=== PATIENT | female | born 1940 | race Caucasian/White ===

== ENCOUNTER 2017-01-21 08:06 | Inpatient (IN) | payer MEDICARE, OTHER ==
[2017-01-21 08:11] VITALS: O2SAT 96
--- NOTE | 2017-01-21 08:24 | ED PDOC ---
Psych Transfer Clearance - Clearance Statement Clearance Statement: Reviewed vital signs, lab results and transfer papers. Patient clinically stable for psychiatric admission. patient was cleared by Dr callejas last night
[2017-01-21] MEDS ORDERED: Magnesium Hydroxide Susp 30 ml UD PO PRN (09:54)
[2017-01-21] MEDS ORDERED: Alum-Mag Hydrox-Simethicone Susp (30 mL) PO PRN (09:54)
[2017-01-21] MEDS ORDERED: Bismuth Subsalicylate 262 mg/15 ml Sus (240 ml) PO PRN (09:54)
[2017-01-21] MEDS ORDERED: Patient's Own Med (Olmesartan/Hydrochlorothiazide [Benicar Hct 40-12.5 Mg Tablet] 1 TAB) PO SCH (15:00)
[2017-01-21] MEDS: Pantoprazole 40 mg EC Tab PO SCH (16:07)
--- NOTE | 2017-01-21 16:09 | PCM.PSYCH ---
Initial Psychiatric Evaluation - Initial Psychiatric Evaluation Type of Admission: Voluntary Legal Status: Capacity Chief Complaint (in patient's own words): "I tried to kill myself" Patient's Reaction to Hospitalization: HPI: 76 yo female, presents after taking 4 or 5 Xanax 0.5 mg tablets as a suicide attempt. Patient continues to be tearful on interview, stating that she is suicidal, without current plan/intent, but that she has no desire to live. She reports feeling stressed that she lives alone and also the pending divorce of her son and hyizxozg-lq-vld due to her sons infidelity. She reports sleep/appetite disturbances. She feels hopeless and helpless. No mark/psychosis/delusions/paranoia. She was prescribed Xanax by her PMD for stress. Additional history from travelers' aid worker: 76yo referred to ED by her son after being found "unresponsive with empty Xanax bottles" and stating: "I don't want to live anymore"; Pt speaks only Vincentian; Suction Worker Bessy Bill #[id number] interpreted for Undersigned; Pt reports the following: "I took pills because I don't want to live;" Pt od on a total of 5 pills that help Pt to "calm down" and "to sleep"; Pt admitted to having suicide intent at the time of the above od; And when asked if she would attempt suicide again upon discharge from the ED, Pt stated: "I don't know"; Pt attributes the above suicide attempt to her son's recent separation from his ; Although Pt's yqhfmcxx-nd-uit stated the separation was secondary to Pt's son having an on-going affair, Pt stated her son's separation was secondary to her qeaunlhd-ow-lac having an affair with another woman; In addition to thoughts of suicide, Pt's sleep has recently been poor; Pt denied having a prior hx of suicide/homicide or any other psychiatric illness; Pt reported no other recent stressors; Pt is agreeable to being admitted if it is recommended. 1:45am Adqyjpia-be-lnb Blanca Watts (sinzckrk-te-mgy) reports the following: In September 2016, Pt was informed that her son (zzzrxnox-en-rte's ) was having an affair with another woman; Consequently, Pt has been feeling "sad"; Ciysfuum-gn-cuq and Pt's grand daughter will be moving into their own separate apartment sometime next week; Pt responded by od on an unknown quantity of unknown pills; Pt was subsequently found in her apartment "unresponsive" and "mumbling"; At some point, Pt did indicate that she wanted to ; Pt's son and jtjyynep-iv-tau had been Pt's primary care givers; Daughter -in-law stated: "We were like stability for her;" Without us, she has no stability;" It makes her feel more alone;" Pt is and currently lives in a senior citizen's building; Pt has no prior hx of suicide/homicide nor any other psychiatric illness; However, bfypmpex-jd-nwt described Pt has a "drama casillas", who tends to suffer somatic complaints whenever she (Pt) feels stressed. 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 Denies illicit drug use. FHx: No known family h/o mental illness Current Medications: Active Medications Generic Name Dose Route Start Last Admin Trade Name Freq PRN Reason Stop Dose Admin Acetaminophen 650 mg 01/21/17 09:54 Tylenol 325mg Tab PO Q4 PRN Pain, moderate (4-7) Al Hydrox/Mg Hydrox/Simethicone 30 ml 01/21/17 09:54 Maalox Plus 30 Ml PO Q4 PRN Dyspepsia Allopurinol 100 mg 01/21/17 15:00 01/21/17 16:08 Zyloprim PO 100 mg DAILY JOSE Administration Bismuth Subsalicylate 524 mg 01/21/17 09:54 Pepto-Bismol PO Q4 PRN Diarrhea Lorazepam 0.5 mg 01/21/17 09:54 Ativan PO 02/04/17 09:55 Q6 PRN Anixety/Agitation Lorazepam 0.5 mg 01/21/17 09:54 Ativan PO 02/04/17 09:55 HS PRN Insomnia Losartan Potassium 100 mg 01/22/17 09:00 Cozaar PO DAILY JOSE Magnesium Hydroxide 30 ml 01/21/17 09:54 Milk Of Magnesia PO HS PRN Constipation Pantoprazole Sodium 40 mg 01/21/17 15:00 01/21/17 16:07 Protonix Ec Tab PO 40 mg DAILY JOSE Administration Repaglinide 0.5 mg 01/21/17 17:00 01/21/17 16:06 Prandin PO 0.5 mg BID JOSE Administration Sertraline HCl 50 mg 01/21/17 15:00 01/21/17 16:08 Zoloft PO 50 mg DAILY JOSE Administration Sitagliptin Phosphate 50 mg 01/21/17 15:00 01/21/17 16:06 Januvia PO 50 mg DAILY JOSE Administration Past Psychiatric History - Past Psychiatric History Previous Treatment History: None Pertinent Medical Hx (Current Medical&Sleep Prob, Allergies): Allergies Allergy/AdvReac Type Severity Reaction Status Date / Time iodine Allergy RASH Verified 01/21/17 08:15 Penicillins Allergy RASH Verified 01/21/17 08:15 azithromycin AdvReac Severe ANAPHYLAXIS Verified 01/21/17 13:50 pepper AdvReac Severe ANAPHYLAXIS Verified 01/21/17 11:35 Allopurinol [Zyloprim] 100 mg PO DAILY 11/13/16 Esomeprazole Magnesium [Nexium] 40 mg PO DAILY 11/13/16 Nebivolol [Bystolic] 5 mg PO DAILY 11/13/16 Olmesartan/Hydrochlorothiazide [Benicar Hct 12.5 mg-40 mg] 1 tab PO DAILY Ondansetron ODT [Zofran ODT] 4 mg PO TID PRN #10 odt 11/13/16 Repaglinide 0.5 mg PO BID 11/13/16 SITagliptin [Januvia] 50 mg PO DAILY 11/13/16 Review of Systems - Review of Systems All systems: reviewed and no additional remarkable complaints except - Psychiatric Psychiatric: Abnormal Sleep Pattern, Anhedonia, Depression, Hopelessness, Mood Swings, Suicidal Ideation Mental Status Examination - Personal Presentation Personal Presentation: Looks stated age - Affect Affect: Constricted, Depressed - Motor Activity Motor Activity: Calm - Reliability in Providing Information Reliability in Providing Information: Fair (Can give history, but does not know medications) - Speech Speech: Organized - Mood Mood: Depressed - Formal Thought Process Formal Thought Process: No Impairment - Obsessions/Compulsions Obsessions: No Compulsions: No - Cognitive Functions Orientation: Person, Place, Situation, Time Sensorium: Alert Attention/Concentration: Attentive Estimate of Intelligence: Average Judgement: Intact, as evidence by: Insight regarding need for hospitalization Memory: Recent intact, as evidence by: Ability to recall events of the day - Risk Risk: Suicidal - Strength & Assets Inventory Strength & Assets Inventory: Family support, Cooperative - Limitations Limitations: Living alone DSM 5 DX - DSM 5 DSM 5 Diagnosis: Major Depressive Disorder - Recommended/Plan of Treatment Treatment Recommendations and Plan of Treatment: -Admit to geropsychiatry -Start Zoloft 50 mg PO Daily -Stop Xanax -Individual and group therapy -Disposition planning -Medicine consult re: chronic medical conditions Projected ELOS: 5-7 days Discharge Plan and Discharge Criteria: Discharge when not an acute danger to self and when the patient is psychiatrically stable - Smoking Cessation Smoking Cessation Initiated: No Reason for not providing: Not indicated
[2017-01-22 08:48] LABS: HEMATOCRIT 38.1 % (34.0-47.0); MEAN CELL VOLUME 90.8 fl (81.0-99.0); MEAN CORPUSCULAR HEMOGLOBIN 29.6 pg (27.0-31.0); MEAN CORPUSCULAR HGB CONC 32.5 g/dL (33.0-37.0); WHITE BLOOD COUNT 5.8 K/uL (4.8-10.8)
[2017-01-22] MEDS: Pantoprazole 40 mg EC Tab PO SCH (09:34)
[2017-01-22 09:50] LABS: ALB/GLOB RATIO 1.1 (1.0-2.1); BILIRUBIN,TOTAL 0.4 mg/dl (0.2-1.3); CALCIUM 9.1 mg/dL (8.4-10.2); POTASSIUM 4.6 MMOL/L (3.6-5.0); TOTAL PROTEIN 7.2 G/DL (6.3-8.2)
[2017-01-22 10:20] LABS: THYROID STIMULATING HORMONE 4.26 mIU/ML (0.46-4.68)
--- NOTE | 2017-01-22 11:57 | PCM.PYCHPN ---
Psychiatric Progress Note - Psychiatric Progress Note Patient seen today, length of contact: Patient evaluated, case discussed with team, chart reviewed, 35 min Patient Chief Complaint: "I'm starting to feel better" Problems Identified/Issues Discussed: Patient reports that her mood is starting to improve. She is not expressing suicidal ideation at this time. She is future/goal-oriented. She discussed her disappointment in her son for being unfaithful to his . No paranoia/ delusions/AH/VH/SI/HI. Medication Change: No Medical Record Reviewed: Yes Consults ordered or reviewed: Medicine consult Mental Status Examination - Cognitive Function Orientation: Person, Place, Situation, Time Memory: Intact (Generally intact, but patient unable to recall her medications ) Attention: WNL Concentration: WNL Fund of Knowledge: WNL Decription of patient's judgement and insights: Fair I/J - Mood Mood: Depressed - Affect Affect: Constricted, Depressed - Speech Speech: Appropriate - Formal Thought Process Formal Thought Process: No Impairment Psychotic Thoughts and Behaviors: NO AH/VH/paranoia - Suicidal Ideation Suicidal Ideation: No - Homicidal Ideation Homicidal Ideation: No Goal/Treatment Plan - Goal/Treatment Plan Need for Continued Stay: Remain at risks for inpatient hospitalization, Severe depression anxiety Progress Toward Problem(s) and Goals/Treatment Plan: 76 yo female w/ MDD, s/p suicide attempt by taking 4 or 5 Xanax pills, now starting to report improved mood, no current suicidal ideation, but she continues to be depressed with constricted affect. She needs continued hospitalization for treatment and safety. -Continue Zoloft 50 mg PO Daily -Individual and group therapy -Disposition planning -Medicine consult appreciated Estimated Date of D/C: 01/26/17 - Smoking Cessation Smoking Cessation Initiated: No Reason for not providing: Not indicated
[2017-01-22 18:03] LABS: FOLATE 8.9 ng/mL
--- NOTE | 2017-01-22 18:38 | CP.PCM.CON ---
History of Present Illness - History of Present Illness History of Present Illness: PT WAS SEEN YESTERDAY AND TODAY reasons for consult : ckd stage 3 h/o apkd htn pt was admitted for suicidal ideation and attempt pt is well known to me from office visits .. has mmp and on multiple meds all previous emr reviewed .. pt was seen and examined .. case d/w psh[facility] "I tried to kill myself" Patient's Reaction to Hospitalization: HPI: 76 yo female, presents after taking 4 or 5 Xanax 0.5 mg tablets as a suicide attempt. Patient continues to be tearful on interview, stating that she is suicidal, without current plan/intent, but that she has no desire to live. She reports feeling stressed that she lives alone and also the pending divorce of her son and rjsqfeja-xq-oaq due to her sons infidelity. She reports sleep/appetite disturbances. She feels hopeless and helpless. No mark/psychosis/delusions/paranoia. She was prescribed Xanax by her PMD for stress. Additional history from general lithographic worker: 76yo referred to ED by her son after being found "unresponsive with empty Xanax bottles" and stating: "I don't want to live anymore"; Pt speaks only Guatemalan; Restaurant Management Internship Bessy Bill #[id number] interpreted for Undersigned; Pt reports the following: "I took pills because I don't want to live;" Pt od on a total of 5 pills that help Pt to "calm down" and "to sleep"; Pt admitted to having suicide intent at the time of the above od; And when asked if she would attempt suicide again upon discharge from the ED, Pt stated: "I don't know"; Pt attributes the above suicide attempt to her son's recent separation from his ; Although Pt's aoidccib-ta-ddr stated the separation was secondary to Pt's son having an on-going affair, Pt stated her son's separation was secondary to her raapqplg-cm-tvs having an affair with another woman; In addition to thoughts of suicide, Pt's sleep has recently been poor; Pt denied having a prior hx of suicide/homicide or any other psychiatric illness; Pt reported no other recent stressors; Pt is agreeable to being admitted if it is recommended. 1:45am Bcaglmja-tb-hro lBanca Watts (kefekxrg-gr-agr) reports the following: In September 2016, Pt was informed that her son (ufxxxlcr-rr-jqb's ) was having an affair with another woman; Consequently, Pt has been feeling "sad"; Dhuyhvbo-ar-clo and Pt's grand daughter will be moving into their own separate apartment sometime next week; Pt responded by od on an unknown quantity of unknown pills; Pt was subsequently found in her apartment "unresponsive" and "mumbling"; At some point, Pt did indicate that she wanted to ; Pt's son and ojkiiglv-np-qvr had been Pt's primary care givers; Daughter -in-law stated: "We were like stability for her;" Without us, she has no stability;" It makes her feel more alone;" Pt is and currently lives in a senior citizen's building; Pt has no prior hx of suicide/homicide nor any other psychiatric illness; However, zqkspcxp-pw-rhj described Pt has a "drama casillas", who tends to suffer somatic complaints whenever she (Pt) feels stressed. 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 Denies illicit drug use. FHx: No known family h/o mental illness Current Medications: Active Medications Past Patient History - Past Social History Smoking Status: Never Smoked - CARDIAC Hx Hypertension: Yes - PULMONARY Hx Tuberculosis: No - NEUROLOGICAL Hx Neurological Disorder: No - HEENT Hx HEENT Problems: No - RENAL Hx Chronic Kidney Disease: No - ENDOCRINE/METABOLIC Hx Diabetes Mellitus Type 2: Yes - HEMATOLOGICAL/ONCOLOGICAL Hx Blood Disorders: No - INTEGUMENTARY Hx Dermatological Problems: No - MUSCULOSKELETAL/RHEUMATOLOGICAL Hx Musculoskeletal Disorders: No Hx Falls: Yes (5 yrs ago) - GASTROINTESTINAL HX Swallowing Problems: Yes (Needs chopped food) Other/Comment: polycystic liver - GENITOURINARY/GYNECOLOGICAL Hx Genitourinary Disorders: No - PSYCHIATRIC Hx Substance Use: No - SURGICAL HISTORY Hx Herniorrhaphy: Yes Hx Hysterectomy: Yes - ANESTHESIA Hx Anesthesia: Yes Hx Anesthesia Reactions: No Meds Allergies/Adverse Reactions: Allergies Allergy/AdvReac Type Severity Reaction Status Date / Time iodine Allergy RASH Verified 01/21/17 08:15 Penicillins Allergy RASH Verified 01/21/17 08:15 azithromycin AdvReac Severe ANAPHYLAXIS Verified 01/21/17 13:50 pepper AdvReac Severe ANAPHYLAXIS Verified 01/21/17 11:35 - Medications Medications: Current Medications Acetaminophen (Tylenol 325mg Tab) 650 mg PO Q4 PRN PRN Reason: Pain, moderate (4-7) Last Admin: 01/21/17 21:43 Dose: 650 mg Al Hydrox/Mg Hydrox/Simethicone (Maalox Plus 30 Ml) 30 ml PO Q4 PRN PRN Reason: Dyspepsia Allopurinol (Zyloprim) 100 mg PO DAILY [facility] Last Admin: 01/22/17 09:35 Dose: 100 mg Bismuth Subsalicylate (Pepto-Bismol) 524 mg PO Q4 PRN PRN Reason: Diarrhea Lorazepam (Ativan) 0.5 mg PO Q6 PRN PRN Reason: Anixety/Agitation Stop: 02/04/17 09:55 Lorazepam (Ativan) 0.5 mg PO HS PRN PRN Reason: Insomnia Stop: 02/04/17 09:55 Losartan Potassium (Cozaar) 100 mg PO DAILY [facility] Last Admin: 01/22/17 09:34 Dose: 100 mg Magnesium Hydroxide (Milk Of Magnesia) 30 ml PO HS PRN PRN Reason: Constipation Pantoprazole Sodium (Protonix Ec Tab) 40 mg PO DAILY [facility] Last Admin: 01/22/17 09:34 Dose: 40 mg Repaglinide (Prandin) 0.5 mg PO BID [facility] Last Admin: 01/22/17 17:31 Dose: Not Given Sertraline HCl (Zoloft) 50 mg PO DAILY [facility] Last Admin: 01/22/17 09:35 Dose: 50 mg Sitagliptin Phosphate (Januvia) 50 mg PO DAILY [facility] Last Admin: 01/22/17 09:34 Dose: 50 mg Results - Vital Signs Recent Vital Signs: Last Vital Signs Temp 97.7 F 01/22/17 15:46 Pulse 56 L 01/22/17 15:46 Resp 18 01/22/17 15:46 BP 144/57 L 01/22/17 15:46 Pulse Ox 96 01/21/17 08:15 - Labs Result Diagrams: 01/22/17 08:21 01/22/17 08:21 Labs: Laboratory Results - last 24 hr 01/21/17 01/22/17 01/22/17 16:07 06:28 08:21 WBC 5.8 RBC 4.19 Hgb 12.4 Hct 38.1 MCV 90.8 MCH 29.6 MCHC 32.5 L RDW 14.0 Plt Count 115 L Sodium Potassium Chloride Carbon Dioxide Anion Gap BUN Creatinine Est GFR ( Amer) Est GFR (Non-Af Amer) POC Glucose (mg/dL) 154 H 119 H Random Glucose Hemoglobin A1c Calcium Total Bilirubin AST ALT Alkaline Phosphatase Total Protein Albumin Globulin Albumin/Globulin Ratio Triglycerides Cholesterol LDL Cholesterol Direct HDL Cholesterol Vitamin B12 Folate Thyroxine (T4) TSH 3rd Generation RPR 01/22/17 01/22/17 01/22/17 08:21 08:21 08:21 WBC RBC Hgb Hct MCV MCH MCHC RDW Plt Count Sodium 140 Potassium 4.6 Chloride 104 Carbon Dioxide 27 Anion Gap 14 BUN 30 H Creatinine 1.4 H Est GFR ( Amer) 44 Est GFR (Non-Af Amer) 36 POC Glucose (mg/dL) Random Glucose 113 H Hemoglobin A1c 6.6 H Calcium 9.1 Total Bilirubin 0.4 AST 49 H ALT 54 H Alkaline Phosphatase 160 H Total Protein 7.2 Albumin 3.8 Globulin 3.4 Albumin/Globulin Ratio 1.1 Triglycerides 105 Cholesterol 223 H LDL Cholesterol Direct 114 HDL Cholesterol 70 Vitamin B12 299 Folate 8.9 Thyroxine (T4) 9.00 TSH 3rd Generation 4.26 RPR Nonreactive 01/22/17 01/22/17 01/22/17 11:27 11:54 15:31 WBC RBC Hgb Hct MCV MCH MCHC RDW Plt Count Sodium Potassium Chloride Carbon Dioxide Anion Gap BUN Creatinine Est GFR ( Amer) Est GFR (Non-Af Amer) POC Glucose (mg/dL) 58 L 112 H 99 Random Glucose Hemoglobin A1c Calcium Total Bilirubin AST ALT Alkaline Phosphatase Total Protein Albumin Globulin Albumin/Globulin Ratio Triglycerides Cholesterol LDL Cholesterol Direct HDL Cholesterol Vitamin B12 Folate Thyroxine (T4) TSH 3rd Generation RPR Assessment & Plan - Assessment and Plan (Free Text) Assessment: CKD .. STABLE HTN .. C/O CURRENT MEDS H/O PCKD SEVERE DEPRESION P C/O CURRENT MEDS C/O CURRENT MANAGEMENT WILL F/U VERY CLOSELY - Date & Time Date: 01/22/17 Time: 15:00
[2017-01-23] MEDS: Pantoprazole 40 mg EC Tab PO SCH (09:06)
--- NOTE | 2017-01-23 10:03 | PCM.PYCHPN ---
Psychiatric Progress Note - Psychiatric Progress Note Patient seen today, length of contact: Patient evaluated, case discussed with team, chart reviewed, 35 min Patient Chief Complaint: "I'm feeling better" Problems Identified/Issues Discussed: Patient reports that her mood is improving. She is not expressing suicidal ideation at this time. She is future/goal-oriented and wants to live. She discussed her concerns that her family would be upset with her about her recent overdose of 4-5 pills. No paranoia/delusions/AH/VH/SI/HI. SW spoke with patient's son, Star, who does not feel she is an acute danger to herself or others and feels comfortable taking her with him tomorrow to stay with him. Medication Change: No Medical Record Reviewed: Yes Consults ordered or reviewed: Medicine consult appreciated Mental Status Examination - Cognitive Function Orientation: Person, Place, Situation, Time Memory: Intact (Generally intact, but patient unable to recall her medications ) Attention: WNL Concentration: WNL Fund of Knowledge: WNL Decription of patient's judgement and insights: Fair I/J - Mood Mood: Depressed - Affect Affect: Broad - Speech Speech: Appropriate - Formal Thought Process Formal Thought Process: No Impairment Psychotic Thoughts and Behaviors: NO AH/VH/paranoia - Suicidal Ideation Suicidal Ideation: No - Homicidal Ideation Homicidal Ideation: No Goal/Treatment Plan - Goal/Treatment Plan Need for Continued Stay: Severe depression anxiety Progress Toward Problem(s) and Goals/Treatment Plan: 76 yo female w/ MDD, s/p suicide attempt by taking 4 or 5 Xanax pills, now reports improved mood, no current suicidal ideation. Patient's son does not feel she is an acute danger to herself and is willing to take her home tomorrow and care for her. -Continue Zoloft 50 mg PO Daily -Individual and group therapy -Discharge to home tomorrow under the care of her family -Medicine consult appreciated Estimated Date of D/C: 01/24/17 - Smoking Cessation Smoking Cessation Initiated: No Reason for not providing: Not indicated
--- NOTE | 2017-01-23 18:54 | CP.PCM.PN ---
Subjective - Date & Time of Evaluation Date of Evaluation: 01/23/17 Time of Evaluation: 15:00 - Subjective Subjective: SEEN ON RENAL F/U FEELS MUCH BETTER BP IS WELL CONTROLED ALL PREVIOUS EMR REVIEWED RENAL FUNCTION STABLE Objective - Vital Signs/Intake and Output Vital Signs (last 24 hours): Temp Pulse Resp BP Pulse Ox 97.3 F L 61 19 131/68 96 01/23/17 16:04 01/23/17 16:04 01/23/17 16:04 01/23/17 16:04 01/21/17 08:15 - Medications Medications: Current Medications Acetaminophen (Tylenol 325mg Tab) 650 mg PO Q4 PRN PRN Reason: Pain, moderate (4-7) Last Admin: 01/21/17 21:43 Dose: 650 mg Al Hydrox/Mg Hydrox/Simethicone (Maalox Plus 30 Ml) 30 ml PO Q4 PRN PRN Reason: Dyspepsia Allopurinol (Zyloprim) 100 mg PO DAILY [facility] Last Admin: 01/23/17 09:06 Dose: 100 mg Bismuth Subsalicylate (Pepto-Bismol) 524 mg PO Q4 PRN PRN Reason: Diarrhea Lorazepam (Ativan) 0.5 mg PO Q6 PRN PRN Reason: Anixety/Agitation Stop: 02/04/17 09:55 Lorazepam (Ativan) 0.5 mg PO HS PRN PRN Reason: Insomnia Stop: 02/04/17 09:55 Losartan Potassium (Cozaar) 100 mg PO DAILY [facility] Last Admin: 01/23/17 09:05 Dose: 100 mg Magnesium Hydroxide (Milk Of Magnesia) 30 ml PO HS PRN PRN Reason: Constipation Pantoprazole Sodium (Protonix Ec Tab) 40 mg PO DAILY [facility] Last Admin: 01/23/17 09:06 Dose: 40 mg Repaglinide (Prandin) 0.5 mg PO BID [facility] Last Admin: 01/23/17 16:40 Dose: 0.5 mg Sertraline HCl (Zoloft) 50 mg PO DAILY [facility] Last Admin: 01/23/17 09:05 Dose: 50 mg Sitagliptin Phosphate (Januvia) 50 mg PO DAILY [facility] Last Admin: 01/23/17 09:05 Dose: 50 mg - Labs Labs: 01/22/17 08:01/22/17 08:21 Assessment and Plan - Assessment and Plan (Free Text) Assessment: CKD .. RENAL FUNCTION STABLE ANEMIA OF CKD .. H/H STABLE HTN .. BP IS WELL CONTROLED DEPRESION .. BETTER C/O CURRENT CARE
[2017-01-24 05:54] VITALS: BP 130/60; RESP 20; TEMP 99
--- NOTE | 2017-01-24 08:57 | PCM.PYCHDC ---
Mental Status Examination - Mental Status Examination Orientation: Person, Place, Situation, Time Memory: Intact Mood: Neutral Affect: Broad Speech: Appropriate Attention: WNL Concentration: WNL Association: WNL Fund of Knowledge: WNL Formal Thought Process: No Impairment Description of patient's judgement and insight: Fair I/J Psychotic Thoughts and Behaviors: NO AH/VH/paranoia Suicidal Ideation: No Current Homicidal Ideation?: No Discharge Summary - Discharge Note Reason for Hospitalization: HPI: 76 yo female, presents after taking 4 or 5 Xanax 0.5 mg tablets as a suicide attempt. Patient continues to be tearful on interview, stating that she is suicidal, without current plan/intent, but that she has no desire to live. She reports feeling stressed that she lives alone and also the pending divorce of her son and oamfsccm-qq-jkx due to her sons infidelity. She reports sleep/appetite disturbances. She feels hopeless and helpless. No mark/psychosis/delusions/paranoia. She was prescribed Xanax by her PMD for stress. 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: 76yo referred to ED by her son after being found "unresponsive with empty Xanax bottles" and stating: "I don't want to live anymore"; Pt speaks only Mongolian; Cost And Risk Analysis Manager Bessy Bill #[id number] interpreted for Undersigned; Pt reports the following: "I took pills because I don't want to live;" Pt od on a total of 5 pills that help Pt to "calm down" and "to sleep"; Pt admitted to having suicide intent at the time of the above od; And when asked if she would attempt suicide again upon discharge from the ED, Pt stated: "I don't know"; Pt attributes the above suicide attempt to her son's recent separation from his ; Although Pt's wjjzskir-ny-ksw stated the separation was secondary to Pt's son having an on-going affair, Pt stated her son's separation was secondary to her zdxeuxnh-xh-thm having an affair with another woman; In addition to thoughts of suicide, Pt's sleep has recently been poor; Pt denied having a prior hx of suicide/homicide or any other psychiatric illness; Pt reported no other recent stressors; Pt is agreeable to being admitted if it is recommended. 1:45am Zqmfomcj-cn-tpd Blanca Watts (tqzkgukv-qv-upl) reports the following: In September 2016, Pt was informed that her son (kwvbqpjy-to-lff's ) was having an affair with another woman; Consequently, Pt has been feeling "sad"; Ypkorjbz-ry-ftj and Pt's grand daughter will be moving into their own separate apartment sometime next week; Pt responded by od on an unknown quantity of unknown pills; Pt was subsequently found in her apartment "unresponsive" and "mumbling"; At some point, Pt did indicate that she wanted to ; Pt's son and vcdklfqx-bs-jfe had been Pt's primary care givers; Daughter -in-law stated: "We were like stability for her;" Without us, she has no stability;" It makes her feel more alone;" Pt is and currently lives in a senior citizen's building; Pt has no prior hx of suicide/homicide nor any other psychiatric illness; However, dvakvmpf-gm-yhq described Pt has a "drama casillas", who tends to suffer somatic complaints whenever she (Pt) feels stressed. 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 Denies illicit drug use. FHx: No known family h/o mental illness Laboratory Data: Abnormal Lab Results 01/23/17 01/23/17 05:37 16:37 POC Glucose (mg/dL) 129 H 112 H Consultations:: List each consultation separately and include: 1. Reason for request. 2. Findings. 3. Follow-up Consultations: Medicine consult appreciated Summary of Hospital Course include:: 1. Description of specific treatment plan utilized for patients during their course of treatmen. 2. Summarize the time- course for resolution of acute symptoms and/or regressed behaviors. 3. Describe issues identified and worked on during hospitalization. 4. Describe medication utilized. 5. Describe medical problems identified and treated. 6. Reassessment of suicide risk Summary of Hospital Course: [facility]. Individual and group therapy provided. Patient was monitored for signs of benzodiazepine withdrawal, but she did not have any symptoms. She was stabilized on Zoloft 50 mg PO Daily. Patient participated in individual psychotherapy daily. Depressive symptoms now improved. Patient is no longer an acute danger to self. - Final Diagnosis (DSM 5) Condition upon Discharge: FAIR DSM 5: Major Depressive Disorder Disposition: HOME/ ROUTINE Follow-up Treatment Plan: 76 yo female w/ MDD, s/p suicide attempt by taking 4 or 5 Xanax pills, now reports improved mood, no current suicidal ideation. Patient's son does not feel she is an acute danger to herself and is willing to take her home tomorrow and care for her. Patient is psychiatrically stable for discharge. -Continue Zoloft 50 mg PO Daily -Continue all other at home medications upon discharge -Individual and group therapy -Discharge to home under the care of her family -Medicine consult appreciated Discharge >35 min Prescriptions/Medication Reconciliation: Sertraline [Zoloft] 50 mg PO DAILY #30 tab - Smoking Cessation Smoking Cessation Medication prescribed: No Reason for not providing: Not indicated - Antipsychotic Medications Pt discharged on 2 or more routine antipsychotic medications: No
[2017-01-24] MEDS: Pantoprazole 40 mg EC Tab PO SCH (09:42)
[2017-01-24 09:43] VITALS: PULSE 60
== END 2017-01-24 14:00 | disposition home or self-care (01) | DRG 881 ==
LOC: H.ER 08:06 → H.STEP 08:17
PROVIDERS: ADMIT Psychiatry & Neurology Psychiatry; ATTEND Psychiatry & Neurology Psychiatry
PROC: GZHZZZZ Group Psychotherapy (ICD-10-PCS; principal; 2017-01-21)
PROC: GZ58ZZZ Individual Psychotherapy, Cognitive-Behavioral (ICD-10-PCS; 2017-01-21)
DX: F32.9 Major depressive disorder, single episode, unspecified (principal); E11.22 Type 2 diabetes mellitus with diabetic chronic kidney disease; N18.3 Chronic kidney disease, stage 3 (moderate); D63.1 Anemia in chronic kidney disease; I12.9 Hypertensive chronic kidney disease with stage 1 through stage 4 chronic kidney disease, or unspecified chronic kidney disease; K58.9 Irritable bowel syndrome, unspecified; Z91.5 Personal history of self-harm; Z79.899 Other long term (current) drug therapy; Z88.0 Allergy status to penicillin; Z88.1 Allergy status to other antibiotic agents; Z91.041 Radiographic dye allergy status; Z90.710 Acquired absence of both cervix and uterus